=== PATIENT | male | born 1960 | race Caucasian/White ===

== ENCOUNTER 2021-02-02 13:41 | Inpatient (IN) | payer OTHER ==
[2021-02-02 15:49] VITALS: BMI 40.1
[2021-02-02] MEDS ORDERED: ONDANSETRON *ODT* 4 MG TABLET SL PRN (17:25)
[2021-02-02] MEDS ORDERED: ACETAMINOPHEN 325 MG TABLET (FP) PO PRN (17:25)
[2021-02-02] MEDS ORDERED: MENTHOL/PHENOL 1 EACH UD MM PRN (17:25)
[2021-02-02] MEDS ORDERED: MAGNESIUM CITRATE 300 ML BOTTLE PO PRN (17:25)
[2021-02-02] MEDS ORDERED: MAGNESIUM HYDROX 2400MG/30ML ORAL SUSPENSION 30 ML CUP PO PRN (17:25)
[2021-02-02] MEDS ORDERED: MAG HYDROX/AL HYDROX/SIMETH 30 ML UNIT-DOSE CUP PO PRN (17:25)
[2021-02-02] MEDS ORDERED: chlordiazePOXIDE HCL 25 MG CAPSULE PO PRN (17:27)
[2021-02-02] MEDS: ACETAMINOPHEN 325 MG TABLET (FP) PO PRN (22:37)
[2021-02-02] MEDS: THIAMINE HCL 100 MG TABLET (FP) PO SCH (22:38)
[2021-02-02] MEDS: chlordiazePOXIDE HCL 25 MG CAPSULE PO SCH (22:38)
[2021-02-02] MEDS: APIXABAN 5 MG TABLET PO SCH (22:39)
[2021-02-02] MEDS: MELATONIN 5 MG TABLETS PO SCH (22:39)
[2021-02-02] MEDS: HYDROCORTISONE 1% TOPICAL CREAM 30 GM TUBE TP PRN (23:00)
[2021-02-03] MEDS: chlordiazePOXIDE HCL 25 MG CAPSULE PO SCH ×4 (07:02→22:15)
[2021-02-03 10:07] LABS: HEMATOCRIT 40.3 % (35.4-49); HEMOGLOBIN 13.5 GM/dL (11.7-16.9); MCH 29.2 pg (25.7-33.7); MCHC 33.4 g/dl (32.0-35.9); MEAN CELL VOLUME 87.3 fl (80-96); MEAN PLT VOLUME 8.8 fl (7.5-11.1); PLATELET COUNT 219 K/MM3 (134-434); RBC 4.62 M/mm3 (4.00-5.60); RDW 14.3 % (11.9-15.9); WHITE BLOOD COUNT 8.2 K/mm3 (4.0-10.0)
[2021-02-03 10:11] LABS: POTASSIUM 3.7 mmol/L (3.5-5.1)
[2021-02-03] MEDS: PRENATAL VITAMINS W/ FOLIC ACID TABLET (FP) PO SCH (10:11)
[2021-02-03] MEDS: APIXABAN 5 MG TABLET PO SCH ×2 (10:11→22:15)
[2021-02-03 10:25] LABS: CALCIUM 8.3 mg/dL (8.5-10.1)
[2021-02-03 10:26] LABS: ALBUMIN 3.3 g/dl (3.4-5.0); BLOOD UREA NITROGEN 16.5 mg/dL (7-18)
[2021-02-03 10:29] LABS: CREATININE 1.1 mg/dL (0.55-1.3)
[2021-02-03 10:30] LABS: BILIRUBIN,TOTAL 0.9 mg/dL (0.2-1); TOT PROT 6.3 g/dl (6.4-8.2)
[2021-02-03] MEDS: ACETAMINOPHEN 325 MG TABLET (FP) PO PRN (21:16)
[2021-02-03] MEDS ORDERED: METOPROLOL TARTRATE 25 MG TABLET (FP) PO ONE (21:30)
[2021-02-03] MEDS: THIAMINE HCL 100 MG TABLET (FP) PO SCH (22:15)
[2021-02-03] MEDS: hydrOXYzine PAMOATE 25 MG CAPSULE (FP) PO PRN (22:17)
[2021-02-03] MEDS: MELATONIN 5 MG TABLETS PO SCH (22:17)
[2021-02-03] MEDS: HYDROCORTISONE 1% TOPICAL CREAM 30 GM TUBE TP PRN (22:25)
[2021-02-04] MEDS: chlordiazePOXIDE HCL 10 MG CAPSULE PO SCH ×4 (05:39→22:38)
[2021-02-04] MEDS: PRENATAL VITAMINS W/ FOLIC ACID TABLET (FP) PO SCH (10:17)
[2021-02-04] MEDS: APIXABAN 5 MG TABLET PO SCH ×2 (10:17→22:38)
[2021-02-04] MEDS: LOSARTAN POTASSIUM 50 MG TABLET PO SCH (13:39)
[2021-02-04] MEDS: OXYBUTYNIN CHLORIDE 5 MG TABLET PO SCH ×2 (14:20→22:38)
[2021-02-04] MEDS ORDERED: INSULIN SLIDING SCALE (NOVOLOG) 1 VIAL SQ ONE (16:53)
[2021-02-04] MEDS: THIAMINE HCL 100 MG TABLET (FP) PO SCH (22:38)
[2021-02-04] MEDS: MELATONIN 5 MG TABLETS PO SCH (22:39)
[2021-02-04] MEDS: HYDROCORTISONE 1% TOPICAL CREAM 30 GM TUBE TP PRN (22:39)
[2021-02-05] MEDS ORDERED: chlordiazePOXIDE HCL 10 MG CAPSULE PO PRN
[2021-02-05 06:08] LABS: SARS-CoV-2 NAA Not Detected (Not Detected)
[2021-02-05] MEDS: chlordiazePOXIDE HCL 10 MG CAPSULE PO SCH ×2 (06:45→17:38)
[2021-02-05] MEDS: hydrOXYzine PAMOATE 25 MG CAPSULE (FP) PO PRN (06:46)
[2021-02-05] MEDS: OXYBUTYNIN CHLORIDE 5 MG TABLET PO SCH ×3 (06:46→21:42)
[2021-02-05] MEDS ORDERED: PATIENT'S OWN MEDICATION (NON-FORMULARY) (Oxybutynin Chloride [Oxybutynin Chloride Er] 15 PO SCH (10:00)
[2021-02-05] MEDS: PRENATAL VITAMINS W/ FOLIC ACID TABLET (FP) PO SCH (10:57)
[2021-02-05] MEDS: APIXABAN 5 MG TABLET PO SCH ×2 (10:57→21:42)
[2021-02-05] MEDS: LOSARTAN POTASSIUM 50 MG TABLET PO SCH (10:57)
[2021-02-05] MEDS: amLODIPine BESYLATE 5 MG TABLET (FP) PO SCH (10:57)
[2021-02-05] MEDS: THIAMINE HCL 100 MG TABLET (FP) PO SCH (21:42)
[2021-02-05] MEDS: MELATONIN 5 MG TABLETS PO SCH (21:42)
[2021-02-05] MEDS ORDERED: ALBUTEROL SO4 HFA INHALER IH PRN (21:51)
[2021-02-05] MEDS: ACETAMINOPHEN 325 MG TABLET (FP) PO PRN (23:26)
[2021-02-06] MEDS ORDERED: chlordiazePOXIDE HCL 10 MG CAPSULE PO ONE (05:00)
[2021-02-06] MEDS: OXYBUTYNIN CHLORIDE 5 MG TABLET PO SCH (05:36)
[2021-02-06 08:49] VITALS: BP 163/90; PULSE 69; TEMP 96.6
[2021-02-06] MEDS: amLODIPine BESYLATE 5 MG TABLET (FP) PO SCH (09:23)
[2021-02-06] MEDS: APIXABAN 5 MG TABLET PO SCH (09:23)
[2021-02-06] MEDS: LOSARTAN POTASSIUM 50 MG TABLET PO SCH (09:23)
[2021-02-06] MEDS: PRENATAL VITAMINS W/ FOLIC ACID TABLET (FP) PO SCH (09:24)
== END 2021-02-06 10:32 | disposition other institution (70) | DRG 897 ==
LOC: YASAS 13:41 → Y3N 16:45
PROVIDERS: ADMIT Allergy & Immunology; ATTEND Allergy & Immunology
PROC: HZ2ZZZZ Detoxification Services for Substance Abuse Treatment (ICD-10-PCS; principal; 2021-02-02)
DX: F10.230 Alcohol dependence with withdrawal, uncomplicated (principal); I69.854 Hemiplegia and hemiparesis following other cerebrovascular disease affecting left non-dominant side; F11.10 Opioid abuse, uncomplicated; F14.10 Cocaine abuse, uncomplicated; F17.210 Nicotine dependence, cigarettes, uncomplicated; I10 Essential (primary) hypertension; E11.9 Type 2 diabetes mellitus without complications; Z79.84 Long term (current) use of oral hypoglycemic drugs; G62.9 Polyneuropathy, unspecified; J45.909 Unspecified asthma, uncomplicated; R32 Unspecified urinary incontinence; Z86.718 Personal history of other venous thrombosis and embolism; Z79.01 Long term (current) use of anticoagulants; Z99.89 Dependence on other enabling machines and devices
CPT/HCPCS: 36415; 80053; 82947; 82962; 83036; 85027; 86780; C9803; U0003; U0005

== ENCOUNTER 2021-02-06 10:34 | Inpatient (IN) | payer OTHER ==
[2021-02-06] MEDS ORDERED: PNEUMOC 13-VAL CONJ-DIP CRM/PF 0.5 ML DISP.SYRIN IM ONE (11:26)
[2021-02-06] MEDS ORDERED: NICOTINE POLACRILEX 2 MG GUM BUC PRN (11:58)
[2021-02-06] MEDS ORDERED: MAG HYDROX/AL HYDROX/SIMETH 30 ML UNIT-DOSE CUP PO PRN (11:58)
[2021-02-06] MEDS ORDERED: IBUPROFEN 400 MG TABLET (FP) PO PRN (11:58)
[2021-02-06] MEDS ORDERED: hydrOXYzine PAMOATE 25 MG CAPSULE (FP) PO PRN (11:58)
[2021-02-06] MEDS ORDERED: MENTHOL/PHENOL 1 EACH UD MM PRN (11:58)
[2021-02-06] MEDS ORDERED: guaiFENesin 200 MG/10 ML 10 ML UNIT-DOSE CUPS PO PRN (11:58)
[2021-02-06] MEDS ORDERED: LOPERAMIDE HCL 2 MG CAPSULE PO PRN (11:58)
[2021-02-06] MEDS ORDERED: MAGNESIUM HYDROX 2400MG/30ML ORAL SUSPENSION 30 ML CUP PO PRN (11:58)
[2021-02-06] MEDS ORDERED: MAGNESIUM CITRATE 300 ML BOTTLE PO PRN (11:58)
[2021-02-06] MEDS ORDERED: P-EPHED 60MG/TRIPROLIDI 2.5MG TABLET PO PRN (11:58)
[2021-02-06] MEDS ORDERED: PNEUMOCOCCAL 23 VACCINE 0.5 ML VIAL IM ONE (12:00)
[2021-02-06] MEDS: OXYBUTYNIN CHLORIDE 5 MG TABLET PO SCH ×2 (13:57→21:33)
[2021-02-06] MEDS ORDERED: MASKS NR ONE (18:20)
[2021-02-06] MEDS: THIAMINE HCL 100 MG TABLET (FP) PO SCH (21:31)
[2021-02-06] MEDS: MELATONIN 5 MG TABLETS PO SCH (21:31)
[2021-02-06] MEDS: APIXABAN 5 MG TABLET PO SCH (21:32)
[2021-02-06] MEDS: GABAPENTIN 300 MG CAPSULE PO SCH (21:32)
[2021-02-06] MEDS ORDERED: PATIENT'S OWN MEDICATION (NON-FORMULARY) (Olmesartan Medoxomil [Olmesartan Medoxomil] 40 M PO SCH (22:00)
[2021-02-07] MEDS: ALBUTEROL SO4 HFA INHALER IH PRN ×3 (04:03→22:10)
[2021-02-07] MEDS: OXYBUTYNIN CHLORIDE 5 MG TABLET PO SCH ×3 (06:18→22:02)
[2021-02-07] MEDS ORDERED: glyBURIDE MICRONIZED 1.5 MG TABLET PO SCH (07:00)
[2021-02-07] MEDS: APIXABAN 5 MG TABLET PO SCH ×2 (10:13→22:03)
[2021-02-07] MEDS: PRENATAL VITAMINS W/ FOLIC ACID TABLET (FP) PO SCH (10:13)
[2021-02-07] MEDS: amLODIPine BESYLATE 5 MG TABLET (FP) PO SCH (10:14)
[2021-02-07] MEDS: LOSARTAN POTASSIUM 50 MG TABLET PO SCH (10:14)
[2021-02-07] MEDS: glyBURIDE 1.25 MG TABLET PO SCH (10:15)
[2021-02-07 14:31] LABS: HIV INTERPRETATION NEGATIVE (NEGATIVE)
[2021-02-07] MEDS: MELATONIN 5 MG TABLETS PO SCH (22:03)
[2021-02-07] MEDS: THIAMINE HCL 100 MG TABLET (FP) PO SCH (22:03)
[2021-02-07] MEDS: GABAPENTIN 300 MG CAPSULE PO SCH (22:03)
[2021-02-08] MEDS: OXYBUTYNIN CHLORIDE 5 MG TABLET PO SCH ×3 (06:38→21:53)
[2021-02-08] MEDS: glyBURIDE 1.25 MG TABLET PO SCH (06:38)
[2021-02-08] MEDS: ALBUTEROL SO4 HFA INHALER IH PRN ×3 (06:39→21:55)
[2021-02-08] MEDS: PRENATAL VITAMINS W/ FOLIC ACID TABLET (FP) PO SCH (09:58)
[2021-02-08] MEDS: APIXABAN 5 MG TABLET PO SCH ×2 (09:59→21:53)
[2021-02-08] MEDS: LOSARTAN POTASSIUM 50 MG TABLET PO SCH (09:59)
[2021-02-08] MEDS: amLODIPine BESYLATE 5 MG TABLET (FP) PO SCH (09:59)
[2021-02-08] MEDS: ACETAMINOPHEN 325 MG TABLET (FP) PO PRN (10:00)
[2021-02-08] MEDS: GABAPENTIN 300 MG CAPSULE PO SCH (21:53)
[2021-02-08] MEDS: THIAMINE HCL 100 MG TABLET (FP) PO SCH (21:53)
[2021-02-08] MEDS: MELATONIN 5 MG TABLETS PO SCH (21:53)
[2021-02-09] MEDS: OXYBUTYNIN CHLORIDE 5 MG TABLET PO SCH ×3 (06:17→21:35)
[2021-02-09] MEDS: glyBURIDE 1.25 MG TABLET PO SCH (06:18)
[2021-02-09] MEDS: PRENATAL VITAMINS W/ FOLIC ACID TABLET (FP) PO SCH (09:49)
[2021-02-09] MEDS: amLODIPine BESYLATE 5 MG TABLET (FP) PO SCH (09:49)
[2021-02-09] MEDS: LOSARTAN POTASSIUM 50 MG TABLET PO SCH (09:49)
[2021-02-09] MEDS: APIXABAN 5 MG TABLET PO SCH ×2 (09:49→21:35)
[2021-02-09] MEDS: THIAMINE HCL 100 MG TABLET (FP) PO SCH (21:35)
[2021-02-09] MEDS: GABAPENTIN 300 MG CAPSULE PO SCH (21:35)
[2021-02-09] MEDS: MELATONIN 5 MG TABLETS PO SCH (21:35)
[2021-02-10] MEDS: glyBURIDE 1.25 MG TABLET PO SCH (06:40)
[2021-02-10] MEDS: OXYBUTYNIN CHLORIDE 5 MG TABLET PO SCH ×3 (06:40→21:32)
[2021-02-10] MEDS ORDERED: PT OWN MED DRAWER 7, Y5N ONE ×3 (08:57→18:45)
[2021-02-10] MEDS: amLODIPine BESYLATE 5 MG TABLET (FP) PO SCH (09:35)
[2021-02-10] MEDS: HYDROCHLOROTHIAZIDE 25 MG TABLET (FP) PO SCH (09:35)
[2021-02-10] MEDS: PRENATAL VITAMINS W/ FOLIC ACID TABLET (FP) PO SCH (09:35)
[2021-02-10] MEDS: LOSARTAN POTASSIUM 50 MG TABLET PO SCH (09:35)
[2021-02-10] MEDS: APIXABAN 5 MG TABLET PO SCH ×2 (09:35→21:32)
[2021-02-10 10:07] LABS: SARS-CoV-2 NAA Not Detected (Not Detected)
[2021-02-10] MEDS: THIAMINE HCL 100 MG TABLET (FP) PO SCH (21:32)
[2021-02-10] MEDS: GABAPENTIN 300 MG CAPSULE PO SCH (21:32)
[2021-02-10] MEDS: MELATONIN 5 MG TABLETS PO SCH (21:32)
[2021-02-11] MEDS: ACETAMINOPHEN 325 MG TABLET (FP) PO PRN (05:35)
[2021-02-11] MEDS: OXYBUTYNIN CHLORIDE 5 MG TABLET PO SCH ×3 (06:32→21:32)
[2021-02-11] MEDS: glyBURIDE 1.25 MG TABLET PO SCH (06:32)
[2021-02-11] MEDS: ALBUTEROL SO4 HFA INHALER IH PRN (10:17)
[2021-02-11] MEDS: amLODIPine BESYLATE 5 MG TABLET (FP) PO SCH (10:17)
[2021-02-11] MEDS: HYDROCHLOROTHIAZIDE 25 MG TABLET (FP) PO SCH ×2 (10:17→11:51)
[2021-02-11] MEDS: APIXABAN 5 MG TABLET PO SCH ×2 (10:17→21:32)
[2021-02-11] MEDS: LOSARTAN POTASSIUM 50 MG TABLET PO SCH (10:17)
[2021-02-11] MEDS: PRENATAL VITAMINS W/ FOLIC ACID TABLET (FP) PO SCH (10:18)
[2021-02-11] MEDS: THIAMINE HCL 100 MG TABLET (FP) PO SCH (21:32)
[2021-02-11] MEDS: MELATONIN 5 MG TABLETS PO SCH (21:32)
[2021-02-11] MEDS: GABAPENTIN 300 MG CAPSULE PO SCH (21:32)
[2021-02-12] MEDS: OXYBUTYNIN CHLORIDE 5 MG TABLET PO SCH ×3 (07:01→21:52)
[2021-02-12] MEDS: glyBURIDE 1.25 MG TABLET PO SCH (07:01)
[2021-02-12] MEDS ORDERED: PT OWN MED DRAWER 7, Y5N ONE ×2 (08:50→20:37)
[2021-02-12] MEDS: LOSARTAN POTASSIUM 50 MG TABLET PO SCH (09:49)
[2021-02-12] MEDS: APIXABAN 5 MG TABLET PO SCH ×2 (09:49→21:52)
[2021-02-12] MEDS: amLODIPine BESYLATE 5 MG TABLET (FP) PO SCH (09:49)
[2021-02-12] MEDS: PRENATAL VITAMINS W/ FOLIC ACID TABLET (FP) PO SCH (09:49)
[2021-02-12] MEDS: HYDROCHLOROTHIAZIDE 25 MG TABLET (FP) PO SCH (09:50)
[2021-02-12] MEDS: ALBUTEROL SO4 HFA INHALER IH PRN (09:51)
[2021-02-12] MEDS: LIDOCAINE 5% TOPICAL PATCH TP SCH (12:02)
[2021-02-12] MEDS: THIAMINE HCL 100 MG TABLET (FP) PO SCH (21:52)
[2021-02-12] MEDS: GABAPENTIN 300 MG CAPSULE PO SCH (21:52)
[2021-02-12] MEDS: METHYL SALICYLATE/MENTHOL OINT 30 GM TUBE TP SCH (21:53)
[2021-02-12] MEDS: MELATONIN 5 MG TABLETS PO SCH (21:53)
[2021-02-12] MEDS ORDERED: LIDOCAINE PATCH REMOVAL MC SCH ×2 (22:00)
[2021-02-13] MEDS: glyBURIDE 1.25 MG TABLET PO SCH (06:25)
[2021-02-13] MEDS: OXYBUTYNIN CHLORIDE 5 MG TABLET PO SCH (06:25)
[2021-02-13 07:01] VITALS: TEMP 97.3
[2021-02-13 08:54] VITALS: PULSE 78
[2021-02-13 08:55] VITALS: BP 138/101
[2021-02-13] MEDS: HYDROCHLOROTHIAZIDE 25 MG TABLET (FP) PO SCH (10:27)
[2021-02-13] MEDS: PRENATAL VITAMINS W/ FOLIC ACID TABLET (FP) PO SCH (10:27)
[2021-02-13] MEDS: amLODIPine BESYLATE 5 MG TABLET (FP) PO SCH (10:27)
[2021-02-13] MEDS: LOSARTAN POTASSIUM 50 MG TABLET PO SCH (10:30)
[2021-02-13] MEDS: APIXABAN 5 MG TABLET PO SCH (10:30)
[2021-02-13] MEDS ORDERED: PT OWN MED DRAWER 7, Y5N ONE (10:31)
[2021-02-13] MEDS: ALBUTEROL SO4 HFA INHALER IH PRN (10:32)
[2021-02-13] MEDS: LIDOCAINE 5% TOPICAL PATCH TP SCH (10:33)
[2021-02-13] MEDS: METHYL SALICYLATE/MENTHOL OINT 30 GM TUBE TP SCH (10:33)
== END 2021-02-13 12:45 | disposition home or self-care (01) | DRG 895 ==
LOC: YASAS 10:34 → Y3W 10:35
PROVIDERS: ADMIT Allergy & Immunology; ATTEND Allergy & Immunology
PROC: HZ42ZZZ Group Counseling for Substance Abuse Treatment, Cognitive-Behavioral (ICD-10-PCS; principal; 2021-02-06)
DX: F10.20 Alcohol dependence, uncomplicated (principal); F14.20 Cocaine dependence, uncomplicated; Z68.41 Body mass index [BMI] 40.0-44.9, adult; I69.854 Hemiplegia and hemiparesis following other cerebrovascular disease affecting left non-dominant side; G62.9 Polyneuropathy, unspecified; I10 Essential (primary) hypertension; E11.9 Type 2 diabetes mellitus without complications; Z79.84 Long term (current) use of oral hypoglycemic drugs; E66.01 Morbid (severe) obesity due to excess calories; Z86.718 Personal history of other venous thrombosis and embolism; Z79.01 Long term (current) use of anticoagulants; R60.0 Localized edema; Z99.89 Dependence on other enabling machines and devices
CPT/HCPCS: 36415; 82962; 86803; 87389; 90732; C9803; G0009; U0003; U0005